=== PATIENT | female | born 1945 | race Caucasian/White ===

== ENCOUNTER → 2024-04-22 07:58 | Outpatient (REF) | payer MEDICARE, OTHER, SELFPAY | LOC: HWRCS 07:58 | PROVIDERS: ATTENDING PHYSICIAN Internal Medicine Cardiovascular Disease; FAMILY PHYSICIAN Internal Medicine | DX: R06.09 Other forms of dyspnea (principal) | CPT/HCPCS: 93306 ==

== ENCOUNTER 2024-04-27 06:27 | Inpatient (IN) | payer MEDICARE, OTHER, SELFPAY ==
[2024-04-11 10:47] LABS: Hematocrit 38.5 % (37.0-47.0); Hemoglobin 12.5 g/dL (12.0-16.0); Mean Corp Hgb Conc. 32.5 g/dL (33.0-37.0); Mean Corpuscular Hgb 30.2 pg (27.0-31.0); Mean Platelet Volume 11.3 fL (7.4-10.4); Platelet Count 175 10^3/uL (130-400); Red Blood Cell Count 4.14 10^6/uL (4.20-5.40); Red Cell Dist. Width 12.9 % (11.5-14.5); White Blood Cell Count 4.1 10^3/uL (4.8-10.8)
[2024-04-11 11:16] LABS: ALT (SGPT) 21 U/L (0-35); AST (SGOT) 37 U/L (14-36); Alkaline Phosphatase 56 U/L (38-126); Blood Urea Nitrogen 28 mg/dl (7-17); Calcium 9.4 mg/dl (8.4-10.2); Carbon Dioxide 33 mmol/L (22-30); Chloride 101 mmol/L (98-107); Glucose 80 mg/dl (70-99); Sodium 139 mmol/L (135-145); Total Bilirubin 0.6 mg/dl (0.2-1.3); Total Protein 7.6 g/dl (6.3-8.2); eGFR 46.05
[2024-04-11 12:06] LABS: Glycohemoglobin (HgbA1c) 5.2 % (4.0-5.6)
[2024-04-11 14:07] VITALS: BMI 19.5
[2024-04-11 15:07] LABS: Vitamin D, 25-OH*** 78.2 ng/mL (30-80)
[2024-04-11 15:21] LABS: TSH 2.32 uIU/ml (0.47-4.68)
[2024-04-11 17:57] VITALS: BMI 19.5
[2024-04-27] VITALS (15 sets, daily range): BP systolic 116–166; BP diastolic 62–84; PULSE 79–80; O2SAT 97
[2024-04-27] MEDS: TYLENOL 650 MG PO ×4 (07:24→20:29)
[2024-04-27] MEDS: CELEBREX 200 MG PO (07:24)
[2024-04-27] MEDS: NORMOSOL-R/PLASMALYTE-A 1000 IV (07:25)
--- NOTE | 2024-04-27 07:59 | W.PN.UPDATE ---
Update Note
Progress Note Update
R knee OA s/p R TKA w/ Dr Martins 04/27/24
DVT prophylaxis - ASA, b/l venous foot pumps
Right renal cortical atrophy, left renal hypertrophy on CT 2011 and CKD stage 3 - minimize nephrotoxins
GERD - add Pepcid HS
Chronic inflammatory demyelinating polyneuropathy - add Decadron, Gabapentin
Remote MRSA history - add IV Vanco in addition to IV Ancef
- Nasal Mupirocin x2 weeks post-op
- Will repeat MRSA nasal swab in an attempt to officially clear patient of MRSA
Chronic RBBB and LAFB
PVD
Degenerative disc disease with spinal stenosis
Bladder tumor s/p TURBT
Urinary dysfunction d/t OAB
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
Osteoporosis
Anxiety
Mild leukopenia
Pt to benefit from Cefadroxil upon d/c
[2024-04-27] MEDS: ULTRAM 50 MG PO ×2 (10:05→15:51)
[2024-04-27] MEDS: VANCOCIN 200 IV (11:53)
[2024-04-27] MEDS: NSS 1000 IV (11:55)
--- NOTE | 2024-04-27 13:42 | CM ---
Reviewed the chart notes and spoke with the patient at the bedside. The patient resides with her spouse in a an independent apartment at [facility] with elevator access. The patient has a rollator, cane, shower chair, and shower rails in the home.
The patient reports no VN in the past, but has been to [facility]. The patient confirmed her pharmacy of choice is the [facility]. The patient will be going to outpatient therapy at [facility] which starts Thursday. CM
continues to be available to patient/family and is monitoring medical plan for needs at discharge.
Plan: Discharge to home when medically stable. Patient's spouse will provide transportation.
[2024-04-27] MEDS: ANCEF 5 IV ×2 (15:47→22:01)
--- NOTE | 2024-04-27 17:19 | PTCARENOTE ---
Received patient from PACU via bed around 1030 in stable condition. Patient oriented to room. Right knee dressing with small amount of sanguineous drainage. + movement +sensation to b/l le. Patient instructed to ring call dumont for assistance. Call
dumont in reach.
[2024-04-27] MEDS: DETROL LA 4 MG PO (18:10)
[2024-04-27] MEDS: ASPIRIN 325 MG PO (18:10)
[2024-04-27] MEDS: FLOMAX 0.4 MG PO (18:24)
[2024-04-27] MEDS: COLACE 100 MG PO (20:28)
[2024-04-27] MEDS: BACTROBAN 2% OINTMENT 1 APPLIC NASAL (20:28)
[2024-04-27] MEDS: SENOKOT 17.2 MG PO (20:29)
[2024-04-27] MEDS: DECADRON 4 MG PO (20:29)
[2024-04-27] MEDS: REMERON 15 MG PO (21:59)
[2024-04-27] MEDS: NEURONTIN 300 MG PO (22:00)
[2024-04-27] MEDS: PEPCID 20 MG PO (22:00)
[2024-04-28] MEDS: TYLENOL 650 MG PO ×4 (00:48→13:10)
[2024-04-28 03:51] VITALS: BP 160/75
[2024-04-28 04:44] VITALS: BP 137/67
[2024-04-28 07:54] VITALS: BP 133/57
[2024-04-28] MEDS: COLACE 100 MG PO (08:22)
[2024-04-28] MEDS: ASPIRIN 325 MG PO (08:23)
[2024-04-28] MEDS: SENOKOT 17.2 MG PO (08:23)
[2024-04-28] MEDS: DECADRON 4 MG PO (08:23)
[2024-04-28] MEDS: BACTROBAN 2% OINTMENT 1 APPLIC NASAL (08:24)
[2024-04-28] MEDS: FLOMAX 0.4 MG PO (08:30)
[2024-04-28 08:50] VITALS: BP 137/60; PULSE 95
--- NOTE | 2024-04-28 10:07 | W.PN.ORTHO ---
Today's Communication / Plan
-
Await PT recs. Pt did overall well w/ OT today.
D/c later today if remaining clinically stable.
Assessment
.
Distal Motor Intact: Yes
Dressing:
Small area of old incisional bleeding. Dressing otherwise C/D/I.
Assessment:
R knee OA s/p R TKA w/ Dr Martins 04/27/24
DVT prophylaxis - ASA, b/l venous foot pumps
Bladder tumors s/p TURBT
Urinary dysfunction d/t OAB
- Pt voiding but in small amounts - did require straight cath x2 (? reasoning behind last straight cath, however, as scan <400)
- Advised oral hydration
- Will hold home OAB meds
- Continue Flomax at home
- Pt aware to contact outpatient urologist should issues continue/worsen while on Flomax and holding home OAB meds
Right renal cortical atrophy, left renal hypertrophy on CT 2011 and CKD stage 3 - minimize nephrotoxins
GERD - added Pepcid HS
Chronic inflammatory demyelinating polyneuropathy - continue Decadron, Gabapentin
Remote MRSA history - added IV Vanco in addition to IV Ancef
- Nasal Mupirocin x2 weeks post-op
- Will repeat MRSA nasal swab in an attempt to officially clear patient of MRSA - results pending prior to d/c
Chronic RBBB and LAFB
PVD
Degenerative disc disease with spinal stenosis
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
Osteoporosis
Anxiety
Mild leukopenia
Pt to benefit from Cefadroxil upon d/c
Plan
.
Surgery / Date: R TKA w/ Dr Martins 04/27/24
DVT Prophylaxis: Aspirin
Activity:
Out of bed.
PT/OT
Discharge Plan: Home w/ Outpatient PT
Subjective
.
.:
Patient resting comfortably in her chair this AM.
R knee pain overall well controlled w/ current pain meds.
Expressed concerns re: ADRs from Tramadol.
Straight cath overnight but urinary issues at baseline.
Vital Signs and Labs
.
Vital Signs and Labs:
Lab Results
04/11/24 10:22
04/11/24 10:22
Temp Pulse Resp BP Pulse Ox
97.8 F 95 20 133/57 93
04/28/24 07:54 04/28/24 07:54 04/28/24 07:54 04/28/24 07:54 04/28/24 07:54
Non-invasive Hgb result: 11.1
Physical Exam
-
HEENT: No pallor, cyanosis, or jaundice. Throat clear.
NECK: Supple. No JVD.
RESPIRATORY: Lungs clear to auscultation.
CVS: S1, S2 normal. RRR.�
ABDOMEN: Soft, non-tender. No distension.
EXTREMITIES: Strength equal, no calf pain with palpation/dorsiflexion. Calves soft.
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 No focal deficits. corporate relations director grossly intact
[2024-04-28] MEDS: ULTRAM 50 MG PO (10:10)
--- NOTE | 2024-04-28 10:24 | W.DS.TRANS ---
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
-
Discharge Instructions:
Sleep Apnea Risk Low
Discharge Diagnosis/Procedures R knee OA s/p R TKA w/ Dr Martins 04/27/24
Diet Other diet
Additional Diets Diabetic carb controlled x1 week for wound
healing/infection prevention
Activity As tolerated,With Walker
Driving Restrictions Not until seen by your Dr
Bathing Restrictions OK to Shower
Other Services PT
Wound Care Dressing to be removed 1 week post-surgery
Instructions:
Stand-Alone Forms: Total Hip/Knee Replacement D/C
Changes to Home Medications: Yes
Discharge Medications:
DC Medications w/original date entered in Sleep Number
calcium 500 mg (as carbonate)-vit D3 10 mcg (400 unit) chewable tablet (Calcium 500 + D) 2 tab PO BID 04/08/24
immune glob,gamm(IgG) 10 %-pro-IgA 0 to 50 mcg/mL intravenous solution (Privigen) 10 g IV Q4W 04/08/24
lutein 20 mg-zeaxanthin 1,000 mcg capsule 1 cap PO DAILY 04/08/24
magnesium 250 mg tablet 250 mg PO DAILY 04/08/24
mirabegron 50 mg tablet,extended release 24 hr (Myrbetriq) 50 mg PO DAILY 04/08/24
mirtazapine 15 mg tablet 15 mg PO HS 04/08/24
pnzxswsb-mevq-gfbfm acid 200 mcg-lycopene 5 mg-boron 250 mcg tablet (Bladder 2.2) 1 tab PO BID 04/08/24
solifenacin 10 mg tablet 10 mg PO DAILY 04/08/24
cefadroxil 500 mg capsule 500 mg PO BID infection prevention #14 caps 04/11/24
dexamethasone 4 mg tablet 4 mg PO BID inflammation #6 tabs 04/11/24
famotidine 20 mg tablet 20 mg PO HS GI prophylaxis #30 tabs 04/11/24
gabapentin 300 mg capsule 300 mg PO HS sleep/pain #10 caps 04/11/24
ondansetron 4 mg disintegrating tablet 4 mg PO Q6H PRN n/v #20 tabs 01/27/25
tramadol 50 mg tablet 50 mg PO Q6H PRN 1 tab moderate pain, 2 if severe #30 tabs 04/11/24
acetaminophen 325 mg tablet 650 mg (2 x 325 mg) PO Q4HWA #60 tabs 04/27/24
aspirin 325 mg tablet 325 mg PO DAILY #30 tabs 04/27/24
docusate sodium 100 mg capsule 100 mg PO BID #30 caps 04/27/24
mupirocin 2 % topical ointment 1 applic intranasal BID #1 tube 04/27/24
sennosides 8.6 mg tablet (Sabiha-elian) 17.2 mg (2 x 8.6 mg) PO BID #30 tabs 04/27/24
tamsulosin 0.4 mg capsule (Flomax) 0.4 mg PO DAILY #7 caps 04/28/24
Home Medication Changes
cefadroxil 500 mg capsule 500 mg PO BID infection prevention #14 caps 04/11/24
dexamethasone 4 mg tablet 4 mg PO BID inflammation #6 tabs 04/11/24
famotidine 20 mg tablet 20 mg PO HS GI prophylaxis #30 tabs 04/11/24
gabapentin 300 mg capsule 300 mg PO HS sleep/pain #10 caps 04/11/24
ondansetron 4 mg disintegrating tablet 4 mg PO Q6H PRN n/v #20 tabs 04/11/24
tramadol 50 mg tablet 50 mg PO Q6H PRN 1 tab moderate pain, 2 if severe #30 tabs 04/11/24
acetaminophen 325 mg tablet 650 mg (2 x 325 mg) PO Q4HWA #60 tabs 04/27/24
aspirin 325 mg tablet 325 mg PO DAILY #30 tabs 04/27/24
docusate sodium 100 mg capsule 100 mg PO BID #30 caps 04/27/24
mupirocin 2 % topical ointment 1 applic intranasal BID #1 tube 04/27/24
sennosides 8.6 mg tablet (Sabiha-elian) 17.2 mg (2 x 8.6 mg) PO BID #30 tabs 04/27/24
tamsulosin 0.4 mg capsule (Flomax) 0.4 mg PO DAILY #7 caps 04/28/24
Pending Results: Yes (MRSA nasal swab )
--- NOTE | 2024-04-28 11:05 | CM ---
Reviewed the chart notes and spoke with the patient at the bedside. IMM reviewed. Patient for discharge to home today. Patient's spouse to provide transportation home. CM continues to be available to patient/family and is monitoring medical plan
for needs at discharge.
Plan: Discharge to home today.
[2024-04-28 11:47] VITALS: BP 105/46; PULSE 78; O2SAT 98
[2024-04-28 12:30] VITALS: BP 126/64
== END 2024-04-28 15:25 | disposition home or self-care (01) | DRG 470 ==
LOC: 2 SOUTH 06:27
PROVIDERS: ADMITTING PHYSICIAN Orthopaedic Surgery
PROC: 0SRC069 Replacement of Right Knee Joint with Oxidized Zirconium on Polyethylene Synthetic Substitute, Cemented, Open Approach (ICD-10-PCS; 2024-04-27)
DX: M17.11 Unilateral primary osteoarthritis, right knee (principal); G61.81 Chronic inflammatory demyelinating polyneuritis; D49.4 Neoplasm of unspecified behavior of bladder; N18.30 Chronic kidney disease, stage 3 unspecified; N28.81 Hypertrophy of kidney; Z86.14 Personal history of Methicillin resistant Staphylococcus aureus infection; M81.0 Age-related osteoporosis without current pathological fracture
CPT/HCPCS: 36415; 73560; 80053; 82306; 83036; 84443; 85027; 87070; 93005; 97110; 97116; 97162; 97166; 97535; C1713; C1776

== ENCOUNTER 2024-05-02 03:08 | Emergency (ER) | payer MEDICARE, OTHER, SELFPAY ==
[2024-05-02 03:13] VITALS: BP 146/81
[2024-05-02 04:11] VITALS: BMI 21.5
--- NOTE | 2024-05-02 04:56 | ED.GENMED ---
History of Present Illness
General
Chief Complaint: Post Operative Problem(s)
Source: patient and spouse
Exam Limitations: none
Time Seen by Provider: 05/02/24 03:38
Nursing documentation reviewed up to this point in time: agreed with
History of Present Illness
History of Present Illness:
This a pleasant 78-year-old female presents to the emergency department with postoperative swelling. She had right knee pain and eventually had a knee replacement surgery Dr. Martins. The surgery was on Thursday. Patient states that today she
developed more pain so she sat down and then pain subsided. Associated
Past History
Past History
ED Past Medical History: GERD
ED Past Surgical History: Appendectomy
Social History
Tobacco: Non-smoker
Personal:
Living: with family
Employment: Retired
Phy Exam
General Physical Exam
General Presentation: well appearing and mild distress
General age: appears stated age
General Skin: warm and dry
General Habitus: normal
General Mental: alert
General Hydration: appears well hydrated
Pulmonary Exam
Pulmonary Exam: no respiratory distress and no cough
Neurological Exam
Neurological Exam: alert and oriented x3
Musculoskeletal Exam
Musculoskeletal Exam: edema, joint swelling (OpSite joint swelling. No bleeding. Appears intact.) and neuro vasc intact
Skin Exam
Skin Exam: normal color and other (Some ecchymosis around the OpSite)
Psychiatric Exam
Psychiatric Exam: normal mood/affect
Course
Orders/Labs/Results
Orders:
Orders
05/02/24 03:48
US Legs, Right [US Periph Venous LOWER Ext RT] Urgent
Comment:
Reason For Exam: post op swelling
Vital Signs
Initial and Last Documented VS:
Initial Vital Signs
Temp Pulse Resp BP Pulse Ox
97.7 F 79 16 146/81 99
05/02/24 03:13 05/02/24 03:13 05/02/24 03:13 05/02/24 03:13 05/02/24 03:13
Last Documented Vital Signs
Temp Pulse Resp BP Pulse Ox
97.7 F 71 16 140/59 98
05/02/24 03:13 05/02/24 05:00 05/02/24 03:13 05/02/24 05:00 05/02/24 05:00
*Radiology
Radiology exam reviewed: radiology read reviewed (Negative for DVT or Mendieta's cyst) and all reviewed NAD by ED Provider
*Critical Care Note
Total Time (30-74mins, 75-104mins- exclusive of procedures): Not Applicable
ED Attending Note
-
Portions of this chart may have been created with voice recognition software.� Occasional wrong word or��sound alike� substitutions may have occurred due to the inherent limitations of voice recognition software.
Discharge Plan
Departure
Patient Disposition: Home (Routine Discharge)
Date of Disposition: 05/02/24
Time of Disposition: 06:15
Patient with high blood pressure during this ER visit?: Yes
Discharge Problem:
Postoperative swelling
Instructions: Swelling, BLOOD PRESSURE
Prescriptions:
No Action
magnesium 250 mg Tablet
250 mg PO QPM
solifenacin 10 mg Tablet
10 mg PO DAILY
Patient Comments:
at dinner
calcium carbonate-vitamin D3 [Calcium 500 + D] 500 mg-10 mcg (400 unit) Tablet,Chewable
2 tab PO BID
Bladder 2.2 200-5-250 mcg-mg-mcg Tablet
1 tab PO BID
mirabegron [Myrbetriq] 50 mg Tablet Extended Release 24 Hr
50 mg PO DAILY
Patient Comments:
at dinner
Privigen 10 % Solution
10 g IV Q4W
lutein-zeaxanthin 20 mg- 1,000 mcg Capsule
1 cap PO QPM
tramadol 50 mg tablet
50 mg PO Q6H PRN (Reason: 1 tab moderate pain, 2 if severe) Qty: 30 0RF
Rx Instructions:
ongoing therapy
cefadroxil 500 mg capsule
500 mg PO BID Qty: 14 0RF
Rx Instructions:
*Take w/ food
*Take w/ probiotic
*POST-OP USE
famotidine 20 mg tablet
20 mg PO HS Qty: 30 0RF
Rx Instructions:
post-op
dexamethasone 4 mg tablet
4 mg PO BID Qty: 6 0RF
Rx Instructions:
take with food
post-op use only
gabapentin 300 mg capsule
300 mg PO HS Qty: 10 0RF
ondansetron 4 mg tablet,disintegrating
4 mg PO Q6H PRN (Reason: n/v) Qty: 20 0RF
Rx Instructions:
take 1/2h b/f pain med if recurrent nausea
allow to dissolve in mouth w/o water
aspirin 325 mg Tablet
325 mg PO DAILY Qty: 30 0RF
Rx Instructions:
Take daily x4 weeks for blood clot prevention.
docusate sodium 100 mg Capsule
100 mg PO BID Qty: 30 0RF
mupirocin 2 % ointment
1 applic intranasal BID Qty: 1 0RF
Rx Instructions:
Prescribed pre-operatively.
tamsulosin [Flomax] 0.4 mg capsule
0.4 mg PO DAILY Qty: 7 0RF
Rx Instructions:
Take daily x1 week for urinary retention prevention.
HOLD IF systolic blood pressure <100
acetaminophen 325 mg tablet
650 mg PO BID
Rx Instructions:
DO NOT exceed >4000 mg daily.
Alternative dosin mg every 6 hours
Referrals:
Nelson Osman MD [Family Provider] -
Molina Martins MD [Active] - Call in 1-3 days for appt
Activity Restrictions/Additional Instructions:
It was a pleasure meeting you and taking part in your care. We hope for your continued healing and wellness.
Please read discharge instructions in their entirety. However, they are for general education and may not describe your exact diagnosis at discharge. Information on your ER visit and medical conditions were discussed with you along with appropriate
follow up information...
If indicated, please take your medications as instructed and indicated on discharge paperwork.
Please schedule a follow up appointment as directed. Call to schedule an appointment
Please return to the emergency department with ANY change in, persisting, or worsening of symptoms. If any of your symptoms do not improve, or persist, or become more severe within 6-12 hours, please return to the emergency department for further
care.
Please return to the emergency department if you develop a headache, neck pain/stiffness, fever greater than 100.4F, chest pain, shortness of breath, persistent nausea, vomiting, slurred speech, difficulty walking, numbness/tingling, weakness, signs
of infection or any other symptoms that are worrisome to you.
If you have any questions or concerns please do not hesitate to call the Hospital at or E-mail me directly at [email or web address]
Interventions
Interventions:
*Risk Screen - Suicide Last Done: 05/02/24 03:13
*General Assessment Last Done: 05/02/24 04:11
*Neglect/Abuse Screening Last Done: 05/02/24 03:13
ED- Fall Risk Assessment Last Done: 05/02/24 03:13
*ED COVID-19 Vaccine History Last Done: 05/02/24 03:13
ED-Skin Assessment Last Done: 05/02/24 04:11
Discharge Date and Time
Print Language: [id number]
[2024-05-02 05:00] VITALS: BP 140/59
== END 2024-05-02 06:33 | disposition home or self-care (01) ==
LOC: EMR 03:08
PROVIDERS: EMERGENCY PHYSICIAN Student in an Organized Health Care Education/Training Program; FAMILY PHYSICIAN Internal Medicine
DX: R22.41 Localized swelling, mass and lump, right lower limb (principal); R03.0 Elevated blood-pressure reading, without diagnosis of hypertension
CPT/HCPCS: 99284; 93971